=== PATIENT | female | born 1935 | race Caucasian/White ===

== ENCOUNTER 2022-04-19 08:39 | Observation (INO) ==
[2022-04-19] MEDS ORDERED: 0.9 % Sodium Chloride 500 ML IVC ONE (09:35)
[2022-04-19] MEDS ORDERED: Acetaminophen 325 MG TABLET PO ONE (09:45)
[2022-04-19 10:05] LABS: Basophils % 0.3 %; Eosinophils # 0.1 K/mcL (0.0-0.6); Eosinophils % 0.7 %; Hematocrit 36.5 % (35.3-44.9); Hemoglobin 12.2 g/dL (11.5-15.4); Immature Granulocytes % 0.4 % (0-4); Lymphocytes # 0.9 K/mcL (0.6-4.6); Lymphocytes % 12.6 %; Mean Corpuscular HGB Conc 33.4 g/dL (31.6-35.5); Mean Corpuscular Hemoglobin 30.6 pg (28.0-33.3); Mean Corpuscular Volume 91.5 fL (83.0-100.0); Mean Platelet Volume 10.5 fL (9.4-12.4); Monocytes # 0.5 K/mcL (0.0-1.3); Monocytes % 6.3 %; Neutrophils # 5.9 K/mcL (1.6-8.9); Platelet Count 122 K/mcL (140-400); Red Blood Count 3.99 M/mcL (3.82-4.97); Red Cell Distribution Width 13.2 % (11.5-14.5); Segmented Neutrophils % 79.7 %; White Blood Count 7.3 K/mcL (4.3-11.1)
[2022-04-19 10:13] LABS: INR 1.1; Prothrombin Time 12.3 Seconds (9.4-12.1)
[2022-04-19 10:25] LABS: Alanine Aminotransferase 11 Units/L (7-52); Albumin 3.9 g/dL (3.5-5.7); Albumin/Globulin Ratio 2.3 (1.1-2.2); Alkaline Phosphatase 76 Units/L (34-104); Aspartate Amino Transferase 16 Units/L (13-39); BUN/Creatinine Ratio 28 (6-26); Bilirubin,Total 0.7 mg/dL (0.3-1.0); Blood Urea Nitrogen 18 mg/dL (8-23); Calcium 9.7 mg/dL (8.6-10.3); Carbon Dioxide 28 mEq/L (23-29); Chloride 105 mEq/L (98-107); Globulin 1.7 g/dL (2.4-3.5); Glucose 106 mg/dL (70-105); Osmolality,Calculated 292 (280-300); Potassium 3.8 mEq/L (3.5-5.1); Sodium 140 mEq/L (136-145); Total Protein 5.6 g/dL (6.4-8.9); eGFR For African Americans > 60 (> 60); eGFR For Non-African Americans > 60 (> 60)
[2022-04-19] MEDS ORDERED: Iopamidol - 370 500 ML MLS IVP ONE (10:33)
[2022-04-19] MEDS ORDERED: Perflutren Lipid Microsphere 1.3 ML in 0.9 % Sodium Chloride 8.7 ML IVP PRN ×2 (10:34→15:03)
[2022-04-19 11:41] LABS: Bilirubin,Urine Negative (Negative); Blood,Urine Negative (Negative); Clarity,Urine Clear (Clear); Color,Urine Yellow (Yellow); Glucose,Urine (UA) Normal (Normal); Ketones,Urine Trace mg/dL (Negative); Leukocyte Esterase,Urine Negative (Negative); Nitrite,Urine Negative (Negative); Protein,Urine Negative (Neg-Trace); Urobilinogen,Urine Normal (Normal)
[2022-04-19 12:35] VITALS: RESP 16
[2022-04-19] MEDS ORDERED: Acetaminophen 325 MG TABLET PO PRN ×3 (14:47→15:03)
[2022-04-19] MEDS ORDERED: Aspirin 81 MG TAB.CHEW PO SCH (15:03)
[2022-04-19] MEDS ORDERED: Naloxone 0.4 MG/ML INJ IVP PRN (15:03)
[2022-04-19 16:17] VITALS: BP 138/81; PULSE 79; TEMP 97.8; O2SAT 95
[2022-04-20] MEDS ORDERED: *HR* Enoxaparin 40 MG/0.4 ML SYRINGE SQ SCH (07:00)
== END 2022-04-19 18:31 | disposition short-term general hospital (02) ==
LOC: EMEROOGRE 08:39 → INPGRE 08:39
PROVIDERS: ADMIT Family Medicine; ATTEND Family Medicine

== ENCOUNTER 2022-04-26 11:54 | Inpatient (IN) ==
[2022-04-27] MEDS: *HR* Enoxaparin 30 MG/0.3 ML SYRINGE SQ SCH (06:09)
[2022-04-27] MEDS: Aspirin Enteric Coated 81 MG Tablet PO SCH (09:06)
[2022-04-27] MEDS: Multivit/Ca/Min/Fe/FA 1 TAB TABLET PO SCH (09:06)
[2022-04-28] MEDS: *HR* Enoxaparin 30 MG/0.3 ML SYRINGE SQ SCH (03:47)
[2022-04-28] MEDS: Multivit/Ca/Min/Fe/FA 1 TAB TABLET PO SCH (08:04)
[2022-04-28] MEDS: Aspirin Enteric Coated 81 MG Tablet PO SCH (08:04)
[2022-04-28] MEDS: Acetaminophen 325 MG TABLET PO PRN (20:00)
[2022-04-29 04:39] LABS: Basophils % 0.6 %; Eosinophils # 0.2 K/mcL (0.0-0.6); Eosinophils % 3.8 %; Hematocrit 34.7 % (35.3-44.9); Hemoglobin 11.4 g/dL (11.5-15.4); Immature Granulocytes % 0.2 % (0-4); Lymphocytes # 2.3 K/mcL (0.6-4.6); Lymphocytes % 47.7 %; Mean Corpuscular HGB Conc 32.9 g/dL (31.6-35.5); Mean Corpuscular Hemoglobin 30.3 pg (28.0-33.3); Mean Corpuscular Volume 92.3 fL (83.0-100.0); Mean Platelet Volume 10.5 fL (9.4-12.4); Monocytes # 0.4 K/mcL (0.0-1.3); Monocytes % 8.4 %; Neutrophils # 1.9 K/mcL (1.6-8.9); Platelet Count 126 K/mcL (140-400); Red Blood Count 3.76 M/mcL (3.82-4.97); Red Cell Distribution Width 13.5 % (11.5-14.5); Segmented Neutrophils % 39.3 %; White Blood Count 4.7 K/mcL (4.3-11.1)
[2022-04-29 04:53] LABS: BUN/Creatinine Ratio 32 (6-26); Blood Urea Nitrogen 21 mg/dL (8-23); Calcium 9.2 mg/dL (8.6-10.3); Carbon Dioxide 27 mEq/L (23-29); Chloride 106 mEq/L (98-107); Glucose 89 mg/dL (70-105); Osmolality,Calculated 290 (280-300); Potassium 4.3 mEq/L (3.5-5.1); Sodium 139 mEq/L (136-145); eGFR For African Americans > 60 (> 60); eGFR For Non-African Americans > 60 (> 60)
[2022-04-29] MEDS: *HR* Enoxaparin 30 MG/0.3 ML SYRINGE SQ SCH (05:17)
[2022-04-29] MEDS: Acetaminophen 325 MG TABLET PO PRN ×2 (08:04→21:22)
[2022-04-29] MEDS: Aspirin Enteric Coated 81 MG Tablet PO SCH (08:04)
[2022-04-29] MEDS: Multivit/Ca/Min/Fe/FA 1 TAB TABLET PO SCH (08:04)
[2022-04-30] MEDS: *HR* Enoxaparin 30 MG/0.3 ML SYRINGE SQ SCH (05:41)
[2022-04-30] MEDS: Multivit/Ca/Min/Fe/FA 1 TAB TABLET PO SCH (08:37)
[2022-04-30] MEDS: Aspirin Enteric Coated 81 MG Tablet PO SCH (08:37)
[2022-04-30] MEDS: Acetaminophen 325 MG TABLET PO PRN ×2 (16:30→21:28)
[2022-04-30 21:19] LABS: Bilirubin,Urine Negative (Negative); Blood,Urine Trace-intact (Negative); Clarity,Urine Clear (Clear); Color,Urine Yellow (Yellow); Glucose,Urine (UA) Normal (Normal); Ketones,Urine Negative (Negative); Leukocyte Esterase,Urine Small (Negative); Nitrite,Urine Negative (Negative); Protein,Urine Negative (Neg-Trace); Specific Gravity,Urine 1.015 (1.010-1.025); Urobilinogen,Urine Normal (Normal)
[2022-04-30 21:20] LABS: Bacteria,Urine Few per hpf (None-Few); RBC,Urine 0-3 per hpf (0-3); Squamous Epithelial Cell,Urine Few per hpf (None-Few)
[2022-05-01] MEDS: *HR* Enoxaparin 30 MG/0.3 ML SYRINGE SQ SCH (06:26)
[2022-05-01] MEDS: Aspirin Enteric Coated 81 MG Tablet PO SCH (09:12)
[2022-05-01] MEDS: Nitrofurantoin (BID) 100 MG CAPSULE PO SCH ×2 (09:14→16:29)
[2022-05-01] MEDS: Multivit/Ca/Min/Fe/FA 1 TAB TABLET PO SCH (09:14)
[2022-05-01] MEDS: Acetaminophen 325 MG TABLET PO PRN (19:31)
[2022-05-01] MEDS: Neosporin OINT 15 GM TUBE TP SCH (19:32)
[2022-05-02] MEDS: *HR* Enoxaparin 30 MG/0.3 ML SYRINGE SQ SCH (04:07)
[2022-05-02] MEDS: Aspirin Enteric Coated 81 MG Tablet PO SCH (09:19)
[2022-05-02] MEDS: Nitrofurantoin (BID) 100 MG CAPSULE PO SCH ×2 (09:20→17:07)
[2022-05-02] MEDS: Multivit/Ca/Min/Fe/FA 1 TAB TABLET PO SCH (09:20)
[2022-05-02] MEDS: Neosporin OINT 15 GM TUBE TP SCH ×2 (09:37→19:26)
[2022-05-02] MEDS: Acetaminophen 325 MG TABLET PO PRN (19:26)
[2022-05-03] MEDS: *HR* Enoxaparin 30 MG/0.3 ML SYRINGE SQ SCH (06:08)
[2022-05-03 07:14] VITALS: BP 148/75; PULSE 69; RESP 17; TEMP 98.4; O2SAT 96
[2022-05-03] MEDS: Aspirin Enteric Coated 81 MG Tablet PO SCH (09:06)
[2022-05-03] MEDS: Nitrofurantoin (BID) 100 MG CAPSULE PO SCH (09:06)
[2022-05-03] MEDS: Multivit/Ca/Min/Fe/FA 1 TAB TABLET PO SCH (09:06)
[2022-05-03] MEDS: Neosporin OINT 15 GM TUBE TP SCH (11:10)
== END 2022-05-03 11:21 | disposition home health service (06) | DRG 556 ==
LOC: INPGRE 17:26
PROVIDERS: ADMIT Family Medicine; ATTEND Family Medicine